=== PATIENT | female | born 1985 | race Caucasian/White ===

== ENCOUNTER 2016-06-18 09:29 | Emergency (ER) | payer OTHER ==
[~2016-06-18] VITALS: Ht 157.5 cm; Wt 67.9 kg
[2016-06-18 10:19] LABS: HEMATOCRIT 37.6 % (36.0-46.0); MCH 18.8 PG (29.0-34.0); MCHC 32.2 G/DL (30.0-36.0); MCV 58.5 FL (83-99); MEAN PLAT.VOLUME 10.6 uM^3 (9.5-12.4); PLATELET COUNT 388 K/uL (156-360); RBC DIS.WIDTH-CV 16.4 % (11.8-14.6); RBC DIS.WIDTH-SD 32.7 % (39-53); RED BLOOD COUNT 6.43 M/uL (3.80-5.20); WHITE BLOOD COUNT 7.3 K/uL (4.1-10.2)
[2016-06-18 10:22] LABS: BILIRUBIN NEGATIVE; BLOOD NEGATIVE; GLUCOSE (STRIP) NEGATIVE; KETONES NEGATIVE; LEUKOCYTES NEGATIVE; NITRITE NEGATIVE; PH, URINE 6.5 (5-8); PROTEIN (STRIP) TRACE; SPECIFIC GRAVITY 1.025 (1.000-1.030)
[2016-06-18 10:23] LABS: ADD MIUA? NO; COLOR DK YELLOW ((YELLOW)); UCUL ADDED? NO
[2016-06-18 10:27] LABS: CHLORIDE 105 mEq/L (99-109); POTASSIUM 4.2 mEq/L (3.7-5.4); SODIUM 138 mEq/L (136-147)
[2016-06-18 10:29] LABS: GLUCOSE 86 mg/dL (70-99)
[2016-06-18 10:30] LABS: ANION GAP 10 MEQ/L (2-14)
[2016-06-18 10:31] LABS: TOTAL BILIRUBIN 0.8 mg/dL (0.0-1.0)
[2016-06-18 10:32] LABS: ALKALINE PHOSPHATASE 84 IU/L (3-129)
[2016-06-18 10:34] LABS: UREA NITROGEN (BUN) 9 mg/dL (9-23)
[2016-06-18 10:41] LABS: QUANTITATIVE HCG < 4.0 MIU/ML
[2016-06-18 10:48] LABS: GFR ESTIMATE (CALCULATED) > 59 mL/min/
[2016-06-18] MEDS ORDERED: NAPROXEN500 MG PO (11:56)
[2016-06-18 13:33] VITALS: BP 124/71
== END 2016-06-18 13:34 | disposition home or self-care (01) ==
LOC: EME 09:29
DX: R10.32 Left lower quadrant pain (principal); N94.6 Dysmenorrhea, unspecified; L71.0 Perioral dermatitis; F17.200 Nicotine dependence, unspecified, uncomplicated
CPT/HCPCS: 74020; 80053; 81003; 84702; 85027; 99281; 99284; J1885

== ENCOUNTER 2016-06-30 09:13 | Emergency (ER) | payer OTHER ==
[~2016-06-30] VITALS: Ht 157.5 cm; Wt 68.1 kg
[~2016-06-30 09:13] MED LIST: NAPROXEN500 MG PO
[2016-06-30] MEDS ORDERED: MUCUS ER600 MG PO (12:41)
[2016-06-30] MEDS ORDERED: NAPROSYN500 MG PO (12:41)
[2016-06-30] MEDS ORDERED: CLARITIN10 M3 PO (12:41)
[2016-06-30] MEDS ORDERED: FLONASE16 G1 BOTH NARES (12:41)
[2016-06-30 13:00] VITALS: BP 119/78
== END 2016-06-30 13:01 | disposition home or self-care (01) ==
LOC: EME 09:13
DX: H92.02 Otalgia, left ear (principal); J30.2 Other seasonal allergic rhinitis; F17.200 Nicotine dependence, unspecified, uncomplicated
CPT/HCPCS: 99281; 99284

== ENCOUNTER 2016-08-24 09:15 | Emergency (ER) | payer OTHER ==
[~2016-08-24] VITALS: Ht 157.5 cm; Wt 70.2 kg
[~2016-08-24 09:15] MED LIST changes: +CLARITIN10 M3 PO; +FLONASE16 G1 BOTH NARES; +MUCUS ER600 MG PO; +NAPROSYN500 MG PO
[2016-08-24 10:35] VITALS: BP 128/71
== END 2016-08-24 10:35 | disposition home or self-care (01) ==
LOC: EME 09:15
DX: J06.9 Acute upper respiratory infection, unspecified (principal); F17.200 Nicotine dependence, unspecified, uncomplicated
CPT/HCPCS: 87651 90; 99281; 99283

== ENCOUNTER 2017-01-27 12:19 | Emergency (ER) | payer OTHER ==
[~2017-01-27] VITALS: Ht 157.5 cm; Wt 65.9 kg
[2017-01-27 12:47] LABS: ADD MIUA? YES; BILIRUBIN NEGATIVE; BLOOD NEGATIVE; COLOR YELLOW ((YELLOW)); GLUCOSE (STRIP) NEGATIVE; KETONES NEGATIVE; LEUKOCYTES TRACE; NITRITE NEGATIVE; PROTEIN (STRIP) 30; SPECIFIC GRAVITY 1.025 (1.000-1.030); UROBILINOGEN 0.2 MG/DL (0.2-1.0)
[2017-01-27 12:53] LABS: BACTERIA NONE SEEN /HPF; EPITHELIAL CELLS 1+ /HPF; INTERNAL CONTROL VALID? YES; MUCUS 4+ /LPF; RED BLOOD CELLS 0-5 /HPF (0-5); UCUL ADDED? NO; WHITE BLOOD CELLS 0-5 /HPF (0-5)
[2017-01-27] MEDS ORDERED: MOTRIN800 MG PO (13:31)
[2017-01-27] MEDS ORDERED: PYRIDIUM200 MG PO (13:34)
[2017-01-27 13:44] VITALS: BP 117/74
== END 2017-01-27 13:45 | disposition home or self-care (01) ==
LOC: EME 12:19
DX: R30.0 Dysuria (principal); R11.0 Nausea; M54.9 Dorsalgia, unspecified; R10.9 Unspecified abdominal pain; N89.8 Other specified noninflammatory disorders of vagina; N91.2 Amenorrhea, unspecified; F17.200 Nicotine dependence, unspecified, uncomplicated
CPT/HCPCS: 81003; 84703; 99281; 99284